=== PATIENT | female | born 1965 | race American Indian/Alaskan Native ===

== ENCOUNTER 2020-11-21 06:53 | Day surgery (SDC) | payer MEDICARE ==
[2020-11-21 07:37] LABS: Basophils % (Auto) 0.5 % (0.0-1.8); Eosinophils # (Auto) 0.1 K/mm3 (0.0-0.4); Eosinophils % (Auto) 1.3 % (0.0-4.3); Hematocrit 35.3 % (30.3-42.9); Hemoglobin 11.7 gm/dl (10.1-14.3); Lymphocytes # (Auto) 1.6 K/mm3 (1.2-5.4); Lymphocytes % (Auto) 25.8 % (13.4-35.0); Mean Corpuscular HGB Conc 33 % (30-34); Mean Corpuscular Volume 80 fl (79-97); Monocytes # (Auto) 0.6 K/mm3 (0.0-0.8); Monocytes % (Auto) 9.1 % (0.0-7.3); Platelet Count 187 K/mm3 (140-440); Red Blood Count 4.42 M/mm3 (3.65-5.03); Red Cell Distribution Width 17.3 % (13.2-15.2)
[2020-11-21 07:50] LABS: INR 0.94 (0.87-1.13)
[2020-11-21] MEDS ORDERED: ASPIRIN EC 325 MG TAB PO SCH (08:00)
[2020-11-21] MEDS ORDERED: SODIUM CHLORIDE 0.9% 500 ML 500 ML IV SCH (08:00)
[2020-11-21 08:35] LABS: Blood Urea Nitrogen 13 mg/dL (7-17); Calcium 9.8 mg/dL (8.4-10.2); Hemolysis Index 0
[2020-11-21 08:38] LABS: BUN/Creatinine Ratio 19
[2020-11-21] MEDS ORDERED: HEPARIN/NS 5000 UNIT/500ML 1,000 ML IR ONE (08:51)
[2020-11-21] MEDS ORDERED: VERAPAMIL 5 MG/2 ML INJ ONE (08:52)
[2020-11-21] MEDS ORDERED: HEPARIN 10,000 UNITS/10 ML VIAL ONE (08:52)
[2020-11-21] MEDS ORDERED: NITROGLYCERIN SYRINGE 0 ML ONE (08:53)
[2020-11-21] MEDS: fentaNYL 100 MCG/2 ML INJ ONE ×3 (09:23→09:51)
[2020-11-21] MEDS: MIDAZOLAM 2 MG/2 ML INJ ONE ×3 (09:23→09:51)
[2020-11-21] MEDS: LIDOCAINE (2%) 20 MG/1 ML VIAL 20 ML MDV INFILTRATI ONE ×2 (09:23→09:37)
--- NOTE | 2020-11-21 11:36 | Short Stay Summary ---
Short Stay Documentation Date of service: 11/21/20 - History H&P: obtained from office - Allergies and Medications Current Medications: Allergies No Known Allergies Allergy (Verified 11/21/20 07:16) Home Medications Medication Instructions Recorded Confirmed Last Taken Type Amlodipine Besylate/Benazepril 1 each PO DAILY 11/21/20 11/21/20 11/21/20 History [Amlodipine-Benazepril 10-20 mg] Escitalopram [Lexapro] 10 mg PO DAILY 11/21/20 11/21/20 11/21/20 History Metoprolol Tartrate [Lopressor] 100 mg PO BID 11/21/20 11/21/20 11/21/20 History busPIRone [Buspar] 10 mg PO BID 11/21/20 11/21/20 11/21/20 History hydroCHLOROthiazide 12.5 mg PO DAILY 11/21/20 11/21/20 11/20/20 History [Hydrochlorothiazide] Active Medications Aspirin (Aspirin Ec 325 Mg Tab) 325 mg PO ONCE KANA Stop: 11/21/20 16:00 Last Admin: 11/21/20 07:55 Dose: 325 mg Documented by: Sodium Chloride (Nacl 0.9% 500 Ml) 500 mls @ 50 mls/hr IV DIRECT KANA Stop: 11/21/20 17:59 Last Admin: 11/21/20 08:07 Dose: 50 mls/hr Documented by: - Brief post op/procedure progress note Date of procedure: 11/21/20 Pre-op diagnosis: Abnormal Stress Test Post-op diagnosis: other (Nonobstructive CAD) Procedure: [facility]- see dictates cath report. Anesthesia: local Estimated blood loss: none Condition: stable - Disposition Condition at discharge: Good Disposition: [id number] TO HOME OR SELFCARE - Discharge Diagnoses (1) Nonobstructive atherosclerosis of coronary artery Status: Chronic Short Stay Discharge Plan Activity: advance as tolerated Diet: low fat, low cholesterol, low salt Wound: open to air, keep clean and dry, per your surgeon's advice Follow up with: RINKU BRAND MD [Primary Care Provider] - 7 Days SONJA SARMIENTO MD [Staff Physician] - 7 Days Forms: CardCath PCI D/C Instructions
--- NOTE | 2020-11-21 11:46 | Cardiac Catherization Report ---
INDICATION FOR PROCEDURE: The patient is a 55-year-old female with history of chest pains, abnormal stress nuclear imaging, which showed small reversible apical defect suggestive of minimal ischemia along with history of lumbar spondylosis and she is scheduled for surgery of the back in the next few days. Because of abnormal stress nuclear imaging, the patient is scheduled for cardiac catheterization for definitive diagnosis and treatment. The patient is aware of the procedure, potential complications and alternatives of therapy available. DESCRIPTION OF PROCEDURE: The patient was brought to the catheterization laboratory in a fasting condition. The patient was evaluated for moderate sedation and was felt to be an appropriate candidate for moderate sedation and received IV Versed and fentanyl. Subsequently, the patient was prepared in standard fashion. Sterile drapes were applied. Local anesthesia was given in the right wrist area. Right radial artery puncture was made using 21-gauge arterial puncture needle. Subsequently, a 5-Palestinian slender sheath was introduced. The patient received 5 mg of intra-arterial verapamil and 3000 units of intravenous heparin. Subsequently, 5-Palestinian multipurpose catheter was used to obtain the angiograms of the left ventricle done in LEA projection using hand injection followed by angiograms of the right coronary artery. A 5-Palestinian TIG catheter was used to obtain the angiograms of the left coronary artery. Following findings were noted. HEMODYNAMICS: 1. Opening aortic pressure 121/77, left ventricular pressure 121/17. No gradient across the aortic valve. Estimated ejection fraction 65%. 2. Left ventriculogram done in LEA projection showed normal sized left ventricle with normal contractility. End-diastolic and systolic volumes are normal. Mitral regurgitation could not be evaluated because of limited amount of dye injected. 3. Left coronary artery arises normally from left coronary cusp. LAD and its branches, circumflex artery and its branches show only minimal luminal irregularities. 4. Right coronary artery dominant vessel shows 50% smooth lesion in the proximal one-third. Rest of the RCA, mid RCA and distal RCA, which is a dominant vessel, is without significant disease. Collaterals none. FINAL IMPRESSION: 1. Normal sized left ventricle with normal contractility. End-diastolic pressure upper limits of normal to mildly increased. 2. Minimal irregularities of the left coronary artery along with 50% smooth lesion with component of spasm in the right coronary artery noted. Because of this 50% lesion, it was felt the patient would benefit from a functional evaluation with IFR. Hence procedure was converted to IFR. The patient has indwelling 5-Palestinian slender sheath. Subsequently, the patient was set up in a standard fashion for pressure measurement with pressure wire. A 6-Palestinian JR4 guiding catheter was used to engage the right coronary artery. IFR measurement was measured. iFR was then performed in a standard fashion and IFR was found to be 0.95, which is not hemodynamically significant. Final angiograms after that IFR showed no significant change in RCA without any complications from the pressure wire insertion. Pressure wire and guiding catheter were removed and good hemostasis was achieved with radial band application. The patient tolerated the procedure well without any side effects. The patient was monitored throughout the procedure for any side effects from sedation with hemodynamic monitoring, pulse oximetry monitoring, and EKG monitoring. The patient tolerated the procedure well. At the end of the procedure, the patient was breathing normally, communicating normally with no side effects. No focal deficits noted. The patient's moderate sedation started at 9:34 a.m. and ended at 9:58 a.m. FINAL IMPRESSION: Non-hemodynamically significant lesion noted in the proximal RCA as confirmed by IFR of 0.95. The patient will be continued on aggressive risk factor modification and medical therapy. At this time, considering the above findings, it was felt the patient can undergo her spinal surgery with low cardiac risk. Same was explained to the patient. JOB# [id number] SPENSER/YOLANDA VU
[2020-11-21 12:39] VITALS: BP 104/70
== END 2020-11-21 13:44 | disposition home or self-care (01) ==
LOC: CATHLABREC 06:53
PROVIDERS: ATTEND Internal Medicine
DX: R94.39 Abnormal result of other cardiovascular function study (principal); R07.89 Other chest pain; I25.10 Atherosclerotic heart disease of native coronary artery without angina pectoris; I10 Essential (primary) hypertension; F31.9 Bipolar disorder, unspecified; F41.9 Anxiety disorder, unspecified; M47.816 Spondylosis without myelopathy or radiculopathy, lumbar region; F17.210 Nicotine dependence, cigarettes, uncomplicated; Z98.890 Other specified postprocedural states; Z79.899 Other long term (current) drug therapy; Z83.3 Family history of diabetes mellitus; Z82.49 Family history of ischemic heart disease and other diseases of the circulatory system
CPT/HCPCS: 36415; 80048; 85025; 85610; 85730; 93005; 93458; 93571; 99156; 99157; C1769; C1887; C1894; J1644; J2250; J3010; J7040; Q9967